=== PATIENT | female | born 1960 | race Two or more races ===

== ENCOUNTER 2023-02-25 03:31 | Emergency (ER) | payer SELFPAY ==
[~2023-02-25] VITALS: Ht 160 cm; Wt 72.6 kg
[2023-02-25 04:06] LABS: BASOPHILS # (AUTO) 0.1 K/uL (0.0-0.2); BASOPHILS % (AUTO) 0.7 % (0.0-2.0); EOSINOPHILS # (AUTO) 0.4 K/uL (0.0-0.7); HEMATOCRIT 38 % (33-45); HEMOGLOBIN 12.3 g/dL (11.5-14.8); LYMPHOCYTES # (AUTO) 2.2 K/uL (0.8-4.8); LYMPHOCYTES % (AUTO) 24.5 % (20.0-44.0); MEAN CORPUSCULAR HEMOGLOBIN 25 PG (26.0-33.0); MEAN CORPUSCULAR HGB CONC 32 g/dl (31.0-36.0); MEAN CORPUSCULAR VOLUME 77 fL (82-100); MONOCYTES # (AUTO) 0.7 K/uL (0.1-1.30); MONOCYTES % (AUTO) 7.8 % (2.0-12.0); NEUTROPHILS # (AUTO) 5.6 K/uL (1.8-8.9); PLATELET COUNT (AUTO) 347 K/uL (150-450); RED BLOOD CELL COUNT(AUTO) 4.93 MIL/uL (4.0-5.2); RED CELL DISTRIBUTION WIDTH 15.2 % (11.5-15.0); WHITE BLOOD COUNT (AUTO) 8.9 K/uL (4.3-11.0)
[2023-02-25 04:10] LABS: APPEARANCE,URINE CLEAR (CLEAR); BILIRUBIN,URINE NEGATIVE (NEGATIVE); BLOOD, URINE TRACE-INTA Ery/uL (NEGATIVE); COLOR,URINE YELLOW (YELLOW); KETONES,URINE NEGATIVE (NEGATIVE); LEUKOCYTE ESTERASE ,URINE NEGATIVE (NEGATIVE); NITRITE, URINE NEGATIVE (NEGATIVE); PH,URINE 5.5 (5.0-8.0); PROTEIN,URINE NEGATIVE (NEGATIVE); UGLUCOSE NEGATIVE (NEGATIVE); UROBILINOGEN,URINE 0.2 EU/dL (0.2)
[2023-02-25 04:15] LABS: CALCIUM, SERUM 9.3 mg/dL (8.5-10.1); CREATININE 0.8 mg/dL (0.6-1.3); POTASSIUM 3.7 mmol/L (3.5-5.1)
[2023-02-25] MEDS ORDERED: DICY10CA37 PO (05:40)
[2023-02-25 07:22] VITALS: BP 129/65; TEMP 98.1; O2SAT 98
== END 2023-02-25 07:23 | disposition home or self-care (01) ==
LOC: ER 03:39
DX: R10.30 Lower abdominal pain, unspecified (principal); Z79.899 Other long term (current) drug therapy
CPT/HCPCS: 36415; 80048-TC; 85025-TC

== ENCOUNTER 2023-04-30 04:35 | Emergency (ER) | payer MEDICAID ==
[~2023-04-30] VITALS: Ht 167.6 cm; Wt 61.2 kg
[~2023-04-30 04:35] MED LIST: DICY10CA37 PO
[2023-04-30 04:50] VITALS: BP 125/79; TEMP 98
[2023-04-30 07:02] VITALS: O2SAT 98
== END 2023-04-30 07:04 | disposition home or self-care (01) ==
LOC: ER 04:37
DX: R10.84 Generalized abdominal pain (principal); Z90.710 Acquired absence of both cervix and uterus; Z59.00 Homelessness unspecified

== ENCOUNTER 2023-05-21 02:33 | Emergency (ER) | payer MEDICAID ==
[~2023-05-21] VITALS: Ht 167.6 cm; Wt 61.2 kg
[2023-05-21] MEDS ORDERED: KETOROLAC TROMETHAMINE 15 MG/ML VIAL ONE (02:59)
[2023-05-21] MEDS ORDERED: ONDANSETRON HCL/PF 4 MG/2 ML VIAL ONE (02:59)
[2023-05-21] MEDS ORDERED: ONDANSETRON HCL/PF 4 MG/2 ML VIAL IVP ONE (03:00)
[2023-05-21] MEDS ORDERED: KETOROLAC TROMETHAMINE 15 MG/ML VIAL IV ONE (03:00)
[2023-05-21 03:09] LABS: BASOPHILS % (AUTO) 0.4 % (0.0-2.0); EOSINOPHILS # (AUTO) 0.4 K/uL (0.0-0.7); HEMATOCRIT 39 % (33-45); HEMOGLOBIN 12.6 g/dL (11.5-14.8); LYMPHOCYTES % (AUTO) 25.5 % (20.0-44.0); MEAN CORPUSCULAR HEMOGLOBIN 25 PG (26.0-33.0); MEAN CORPUSCULAR HGB CONC 32 g/dl (31.0-36.0); MEAN CORPUSCULAR VOLUME 77 fL (82-100); MONOCYTES # (AUTO) 0.7 K/uL (0.1-1.30); MONOCYTES % (AUTO) 8.8 % (2.0-12.0); NEUTROPHILS # (AUTO) 4.8 K/uL (1.8-8.9); NEUTROPHILS % (AUTO) 60.3 % (43.0-81.0); PLATELET COUNT (AUTO) 318 K/uL (150-450); RED BLOOD CELL COUNT(AUTO) 5.08 MIL/uL (4.0-5.2)
[2023-05-21 03:12] VITALS: BP 130/68; TEMP 98.4; O2SAT 98
[2023-05-21 03:26] LABS: ALBUMIN 3.6 g/dL (3.4-5.0); BILIRUBIN,DIRECT 0.1 mg/dL (0.0-0.2); BILIRUBIN,TOTAL 0.3 mg/dL (0.2-1.0); CREATININE 0.6 mg/dL (0.6-1.3); POTASSIUM 3.8 mmol/L (3.5-5.1); TOTAL PROTEIN, SERUM 7.1 g/dL (6.4-8.2)
== END 2023-05-21 03:13 | disposition left against medical advice (07) ==
LOC: ER 02:34
DX: R10.84 Generalized abdominal pain (principal); Z79.899 Other long term (current) drug therapy; Z98.890 Other specified postprocedural states; Z59.00 Homelessness unspecified
CPT/HCPCS: 36415; 80048-TC; 80076-TC; 83690-TC; 85025-TC; J1885; J2405

== ENCOUNTER 2023-07-10 02:39 | Emergency (ER) | payer SELFPAY | END 2023-07-10 03:13 | disposition left against medical advice (07) | LOC: ER 03:11 | DX: R10.9 Unspecified abdominal pain (principal); Z53.21 Procedure and treatment not carried out due to patient leaving prior to being seen by health care provider ==

== ENCOUNTER 2024-04-26 05:23 | Emergency (ER) | payer OTHER | END 2024-04-26 05:31 | disposition left against medical advice (07) | LOC: ER 05:24 | DX: Z53.21 Procedure and treatment not carried out due to patient leaving prior to being seen by health care provider (principal) ==